=== PATIENT | male | born 1960 | race Caucasian/White ===

== ENCOUNTER 2016-07-29 17:29 | Emergency (ER) | payer OTHER | END 2016-07-29 18:35 | disposition home or self-care (01) | LOC: ED 17:29 | DX: Z76.0 Encounter for issue of repeat prescription (principal); F11.23 Opioid dependence with withdrawal; T40.2X5A Adverse effect of other opioids, initial encounter; E05.90 Thyrotoxicosis, unspecified without thyrotoxic crisis or storm; I10 Essential (primary) hypertension; M19.90 Unspecified osteoarthritis, unspecified site; Z79.899 Other long term (current) drug therapy; Z88.8 Allergy status to other drugs, medicaments and biological substances ==